=== PATIENT | male | born 1995 | race Caucasian/White ===

== ENCOUNTER 2017-07-11 05:36 | Emergency (ER) | payer OTHER ==
[2017-07-11 05:42] VITALS: BP 133/83; PULSE 67; RESP 18; TEMP 98.7
--- NOTE | 2017-07-11 06:12 | ED ---
ENT HPI - General Chief complaint: Dental/Oral Stated complaint: dental pain Time Seen by Provider: 07/11/17 05:54 Source: patient Mode of arrival: ambulatory Limitations: no limitations - History of Present Illness Initial comments: 21 years old male presents with the dental pain pain is on the right upper jaw is about first and second tooth also complaining about come swelling in the same area, he said pain is off-and-on for ongoing for about 4 weeks now, no fever no chills eating doessee pain worse no recent trauma to the jaw area. No headaches no stiff neck no chest pain or shortness of breath no abdominal pain no frequency urgency dysuria - Related Data Previous Rx's Medication Instructions Recorded Acetaminophen-Codeine 300-30mg 2 tab PO Q8H PRN #20 tablet 07/11/17 [Tylenol #3] Amoxicillin 500 mg PO Q8H #30 capsule 07/11/17 Allergies Allergy/AdvReac Type Severity Reaction Status Date / Time No Known Allergies Allergy Verified 07/11/17 05:43 Review of Systems ROS Statement: Those systems with pertinent positive or pertinent negative responses have been documented in the HPI. ROS Other: All systems not noted in ROS Statement are negative. Past Medical History Past Medical History: No Reported History History of Any Multi-Drug Resistant Organisms: None Reported Past Surgical History: Orthopedic Surgery Additional Past Surgical History / Comment(s): right knee Past Psychological History: Anxiety Smoking Status: Current every day smoker Past Alcohol Use History: Occasional Past Drug Use History: None Reported General Exam - General Exam Comments Initial Comments: General: The patient is awake and alert, in mild distress Skin: Skin is warm and dry and no rashes or lesions are noted. Eye: Pupils are equal, round and reactive to light, extra-ocular movements are intact; there is normal conjunctiva bilaterally. Ears, nose, mouth and throat: Upper jaw, more area tooth removal component to, no clear defect noticed a belted noticed some inflammation around the tooth or gum area him is also tender to deep palpation over the joint and over the right maxillary sinuses Neck: The neck is supple, there is no tenderness or JVD. Cardiovascular: There is a regular rate and rhythm. No murmur, rub or gallop is appreciated. Respiratory: To auscultation bilateral, no wheezing no rhonchi no distress respiratory culp noticed Gastrointestinal: Soft, non-distended, non-tender abdomen without masses or organomegaly noted. There is no rebound or guarding present. Bowel sounds are unremarkable. Back: There is no tenderness to palpation in the midline. There is no obvious deformity. Musculoskeletal: Normal ROM, no tenderness, There is no pedal edema. There is no calf tenderness or swelling. No cords were appreciated. Neurological: CN II-XII intact, Cranial nerves III through XII are intact. There are no obvious motor or sensory deficits. Coordination appears grossly intact. Speech is normal. Psychiatric: Cooperative, appropriate mood & affect, normal judgment. Limitations: no limitations Course Vital Signs 07/11/17 05:39 Temperature 98.7 F Pulse Rate 67 Respiratory 18 Rate Blood Pressure 133/83 O2 Sat by Pulse 98 Oximetry Disposition Clinical Impression: Pain, dental, Gum inflammation Disposition: HOME SELF-CARE Condition: Good Instructions: Toothache (ED) Additional Instructions: He is advised to follow-up with a dentist as soon as possible Prescriptions: Acetaminophen-Codeine 300-30mg [Tylenol #3] 2 tab PO Q8H PRN #20 tablet PRN Reason: Pain Amoxicillin 500 mg PO Q8H #30 capsule Referrals: None,Stated [Primary Care Provider] - 1-2 days
[2017-07-11] MEDS ORDERED: KETOROLAC 30 MG/ML 1 ML VIAL IM STA (06:18)
== END 2017-07-11 06:25 | disposition home or self-care (01) ==
LOC: EC 05:36
DX: K05.10 Chronic gingivitis, plaque induced (principal); K08.89 Other specified disorders of teeth and supporting structures; F17.200 Nicotine dependence, unspecified, uncomplicated
CPT/HCPCS: 99282; 96372; J1885

== ENCOUNTER 2019-07-31 14:28 | Emergency (ER) | payer OTHER ==
[2019-07-31 14:32] VITALS: BP 111/72; PULSE 64; RESP 20; TEMP 97.9
[2019-07-31] MEDS ORDERED: KETOROLAC 30 MG/ML 1 ML VIAL IM STA (14:48)
[2019-07-31] MEDS ORDERED: ORPHENADRINE 30 MG/ML 2 ML VIAL IM STA (14:49)
--- NOTE | 2019-07-31 15:02 | ED ---
General Adult HPI - General Chief complaint: Back Pain/Injury Stated complaint: Back pain Time Seen by Provider: 07/31/19 14:41 Source: patient, RN notes reviewed Mode of arrival: ambulatory Limitations: no limitations - History of Present Illness Initial comments: 23-year-old male without any significant past medical history presents to the emergency department for lower back pain times one week. 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 States that about a week ago he woke up after her shift and had lower back pain. States that he went to work today and this exacerbated his pain because he had to stand all day. Patient denies any radiating pain down the legs or any weakness numbness or tingling in the lower extremities. Denies any bladder or bowel changes. Denies any saddle anesthesia. No fevers, chills, or history of IV drug abuse. No history of back surgeries. No recent bacterial infections. Patient states that standing and bending his back seems to make the pain worse while laying down and resting makes the pain better. States the pain almost goes away while he is lying flat.Patient has no other complaints at this time including shortness of breath, chest pain, abdominal pain, nausea or vomiting, headache, or visual changes. - Related Data Previous Rx's Medication Instructions Recorded Cyclobenzaprine [Flexeril] 10 mg PO TID #12 tab 07/31/19 Ibuprofen [Motrin] 600 mg PO Q8HR PRN #20 tab 07/31/19 Allergies Allergy/AdvReac Type Severity Reaction Status Date / Time No Known Allergies Allergy Verified 07/31/19 14:32 Review of Systems ROS Statement: Those systems with pertinent positive or pertinent negative responses have been documented in the HPI. ROS Other: All systems not noted in ROS Statement are negative. Past Medical History Past Medical History: No Reported History History of Any Multi-Drug Resistant Organisms: None Reported Past Surgical History: Orthopedic Surgery Additional Past Surgical History / Comment(s): right knee Past Psychological History: Anxiety Smoking Status: Current every day smoker Past Alcohol Use History: Occasional Past Drug Use History: Marijuana General Exam Limitations: no limitations General appearance: alert, in no apparent distress Head exam: Present: atraumatic, normocephalic, normal inspection Eye exam: Present: normal appearance, PERRL, EOMI. Absent: scleral icterus, conjunctival injection, periorbital swelling ENT exam: Present: normal exam, mucous membranes moist Neck exam: Present: normal inspection, full ROM. Absent: tenderness, meningismus, lymphadenopathy Respiratory exam: Present: normal lung sounds bilaterally. Absent: respiratory distress, wheezes, rales, rhonchi, stridor Cardiovascular Exam: Present: regular rate, normal rhythm, normal heart sounds. Absent: systolic murmur, diastolic murmur, rubs, gallop, clicks GI/Abdominal exam: Present: soft, normal bowel sounds. Absent: distended, tenderness, guarding, rebound, rigid Extremities exam: Present: normal capillary refill (Capillary refill less than 2 seconds, DP and PT pulses 2+ and equal in lower extremities bilaterally), other (Sensation intact in lower extremities bilaterally) Back exam: Absent: full ROM (Patient has about 60 flexion of the lumbar spine), CVA tenderness (R), CVA tenderness (L), paraspinal tenderness, vertebral tenderness Neurological exam: Present: normal gait (Patient able to ambulate but does have increased pain when doing so), reflexes normal (Patellar reflexes 2+ in lower extremities). Absent: motor sensory deficit (Sensation intact in lower extremities bilaterally) Course Vital Signs 07/31/19 07/31/19 14:30 15:22 Temperature 97.9 F 97.9 F Pulse Rate 64 64 Respiratory 20 20 Rate Blood Pressure 111/72 111/72 O2 Sat by Pulse 100 100 Oximetry Medical Decision Making - Medical Decision Making 23-year-old male without any significant past medical history presents for lower back pain times one week. 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 States this is worse with standing and movement and better when lying flat. Denies any red flag symptoms. Exam is unremarkable. Neurologically intact in the lower extremities bilaterally. DP pulses 2+. Patient ambulatory although does have pain with significant flexion of the lumbar spine. Vitals are stable. There is no injury x-ray was not obtained but patient was referred to orthopedics for possible MRI if he does not have resolving symptoms. Patient was given pain medication and pain decreased from an 8 to a 3. Feeling much better and requesting discharge. He will follow up with orthopedics. He will return here if his any worsening symptoms which were discussed in depth with him. Disposition Clinical Impression: Mechanical back pain Disposition: HOME SELF-CARE Condition: Good Instructions (If sedation given, give patient instructions): Acute Low Back Pain (ED) Additional Instructions: Please follow up with orthopedics in one to 2 days. Take Motrin for pain. Take muscle relaxer as needed but do not take this while driving or operating machinery. Return to the emergency department if you have any worsening symptoms such as bladder or bowel changes, fevers, numbness of the groin or buttock, or weakness of the lower extremities. Prescriptions: Cyclobenzaprine [Flexeril] 10 mg PO TID #12 tab Ibuprofen [Motrin] 600 mg PO Q8HR PRN #20 tab PRN Reason: Pain Is patient prescribed a controlled substance at d/c from ED?: No Referrals: Phuong Bernard DO [Doctor of Osteopathic Medicine] - 1-2 days Vinny Aguilar MD [REFERRING] - 1-2 days Time of Disposition: 15:21
== END 2019-07-31 15:25 | disposition home or self-care (01) ==
LOC: EC 14:28
DX: M54.5 Low back pain (principal); F17.200 Nicotine dependence, unspecified, uncomplicated
CPT/HCPCS: 99283; 96372 ×2; J2360; J1885

== ENCOUNTER 2023-04-14 15:22 | Inpatient (IN) | payer MEDICAID ==
[2023-04-14] MEDS ORDERED: ACETAMINOPHEN TAB 325 MG TAB PO PRN (16:08)
[2023-04-14] MEDS ORDERED: MAGNESIUM HYDROXIDE 2,400 MG/10 ML CUP PO PRN (16:08)
[2023-04-14] MEDS ORDERED: LORazepam 1 MG TAB PO PRN (16:08)
[2023-04-14] MEDS ORDERED: haloperidoL 5 MG TAB PO PRN (16:08)
[2023-04-14] MEDS ORDERED: MAG HYDROX/AL HYDROX/SIMETH 30 ML CUP PO PRN (16:08)
[2023-04-14] MEDS ORDERED: LORazepam 2 MG/ML INJ IM PRN (16:11)
[2023-04-14] MEDS ORDERED: HALOPERIDOL LACTATE 5 MG/ML 1 ML VIAL IM PRN (16:12)
[2023-04-14] MEDS: OXcarbazepine 300 MG TAB PO SCH (21:24)
[2023-04-14 23:59] VITALS: RESP 16
[2023-04-15] MEDS: OXcarbazepine 300 MG TAB PO SCH ×2 (07:57→21:30)
[2023-04-15] MEDS: NICOTINE 14MG/24HR PATCH TRANSDERM SCH (07:57)
[2023-04-15 13:58] LABS: LDL Cholesterol,Calculated 106.3 mg/dL (0.0-131.0)
[2023-04-15 14:28] VITALS: BMI 30.3
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
[2023-04-15] MEDS: QUEtiapine 25 MG TAB PO SCH (21:30)
[2023-04-16] MEDS: OXcarbazepine 300 MG TAB PO SCH ×2 (07:52→21:23)
[2023-04-16] MEDS: NICOTINE 14MG/24HR PATCH TRANSDERM SCH (08:07)
--- NOTE | 2023-04-16 11:36 | P.PN ---
Progress Note - Text Progress Note Date: 04/16/23 Interval History: Patient was seen wandering the hallways and was directable and agreeable to speak with keno writer in the office. Currently, the patient is not reporting any suicidal or homicidal ideation, intention, and/or plan. Reports no auditory or visual hallucinations. He denies any paranoia or other delusions. He has been adherent with his medications and is not endorsing any significant side effects. The patient reports that he understands he needs to work on coping skills and was educated on not relying on others to be his sole coping skill. We engaged in mentalization and cognitive behavioral therapy. He reports no issues regarding his sleep is appetite. He expresses a desire for discharge and signed an AMA form that expires on 04/20/2023. Mental Status Exam: General Appearance: Patient appears to be stated age is alert, directable, and cooperative. Patient is balding. He has large spacers for earrings. Behavior: Patient is calmly seated without any agitated behavior. Speech: Patient's speech is fluent and nonpressured. Mood/Affect: Mood is improving mildly, affect is congruent and constricted. Suicidality/Homicidality: Patient denies having any suicidal or homicidal ideation intent or plan. Perceptions: Patient denies any visual hallucinations and denies any auditory hallucinations Though content/process: There is no evidence of any delusional thought content and thought process is linear and goal-directed. Memory and concentration: AOX3, grossly intact for the purposes of this session Judgment and insight: Improving mildly Vital Signs Temp 98.5 F 04/14/23 23:35 Pulse 97 04/14/23 23:35 Resp 16 04/14/23 23:35 BP 118/62 04/14/23 23:35 Pulse Ox FiO2 Intake & Output 04/15/23 04/16/23 04/16/23 18:59 06:59 18:59 Weight 96 kg Laboratory Results - Last 24 Hours 04/15/23 04/15/23 07:53 07:[address] Glu mg/dL 107 Hemoglobin A1c 5.3 Triglycerides 220.00 H Cholesterol 183.00 LDL Cholesterol, Calc 106.3 VLDL Cholesterol, Calc 44.00 H HDL Cholesterol 32.70 L Cholesterol/HDL Ratio 5.60 Assessment Bipolar disorder, unspecified Cannabis use disorder, mild Rule out borderline personality disorder Plan: -Patient continues to meet criteria for inpatient psychiatric admission for symptom stabilization and safety. Patient has signed adult voluntary form and medication consent and was placed in patient's chart. -Medications: Trileptal 300 mg by mouth twice a day for off label use for mood stabilization Seroquel 25 mg by mouth at bedtime for mood stabilization -When necessary Ativan and Haldol for agitation/aggression. -NRT - nicotine patch -SW on board for discharge planning. Encouraged the patient to participate in milieu.
--- NOTE | 2023-04-16 14:38 | P.HPMEDMHU ---
History of Present Illness H&P Date: 04/16/23 Patient is a 27-year-old male admitted to mental health unit. [facility] physicians has been consulted for medical management. Currently denies any medical problems. Smokes half pack a day, denies alcohol use, occasional marijuana use. Pertinent positives and negatives as discussed in HPI, a complete review of systems was performed and all other systems are negative. Patient seen and examined at bedside. Vital signs reviewed General: nontoxic, no distress, appears at stated age Derm: warm, dry Head: atraumatic, normocephalic, symmetric Eyes: EOMI, no lid lag, anicteric sclera, pupils equal round reactive to light ENT: Nose and ears atraumatic Neck: No thyromegaly, supple Mouth: no lip lesion, mucus membranes moist Cardiovascular: S1S2 reg, no murmur, no edema Lungs: clear to auscultation bilateral, no rhonchi, no rales, no wheeze, no accessory muscle use Abdominal: soft, nontender to palpation, no guarding, no appreciable organomegaly Ext: no gross muscle atrophy, muscle strength muscle strength 5 out of 5 in all 4 extremities, no contractures Neuro: CN II-XII grossly intact Psych: Alert, oriented, appropriate affect Assessment/Plan: Dyslipidemia Bipolar disorder Nicotine dependence Cannabis use disorder -Recommending lifestyle modification for dyslipidemia -Bipolar management per psychiatry -Nicotine patch 14 mg daily -Counseled regarding cessation of smoking Thank you for allowing us to participate in the care of this pleasant patient. Do not hesitate to contact us with questions. Someone can be reached from the [facility] hospitalist group all hours of the day at [phone] or via [employer]. Past Medical History Past Medical History: No Reported History History of Any Multi-Drug Resistant Organisms: None Reported Past Surgical History: Orthopedic Surgery Additional Past Surgical History / Comment(s): right knee Past Anesthesia/Blood Transfusion Reactions: No Reported Reaction Smoking Status: Current every day smoker Medications and Allergies Home Medications Medication Instructions Recorded Confirmed Type Cyclobenzaprine [Flexeril] 10 mg PO TID #12 tab 07/31/19 Rx Ibuprofen [Motrin] 600 mg PO Q8HR PRN #20 tab 07/31/19 Rx Allergies Allergy/AdvReac Type Severity Reaction Status Date / Time No Known Allergies Allergy Verified 07/31/19 14:32 Cranial Nerve Examination - Cranial Nerves Cranial Nerve II- Optic: Intact Cranial Nerve III- Oculomotor: Intact Cranial Nerve IV- Trochlear: Intact Cranial Nerve V- Trigeminal: Intact Cranial Nerve - Abducens: Intact Cranial Nerve VII- Facial: Intact Cranial Nerve VIII- Auditory: Intact Cranial Nerve IX- Glossopharyngeal: Intact Cranial Nerve X- Vagus: Intact Cranial Nerve XI- Accessory: Intact Cranial Nerve XII- Hypoglossal: Intact Thrombosis Risk Factor Assmnt - Choose All That Apply Each Factor Represents 1 point: Obesity (BMI >25) Other Risk Factors: No Other congenital or acquired thrombophilia - If yes, enter type in comment: No Thrombosis Risk Factor Assessment Total Risk Factor Score: 1 Thrombosis Risk Factor Assessment Level: Low Risk
[2023-04-16] MEDS: QUEtiapine 25 MG TAB PO SCH (21:23)
[2023-04-17 06:29] VITALS: BP 114/59; PULSE 91; TEMP 97.8
[2023-04-17] MEDS: OXcarbazepine 300 MG TAB PO SCH (08:15)
[2023-04-17] MEDS: NICOTINE 14MG/24HR PATCH TRANSDERM SCH (08:16)
--- NOTE | 2023-04-17 12:29 | P.DS ---
Providers Date of admission: 04/14/23 20:40 Expected date of discharge: 04/17/23 Attending physician: Ricky Zheng MD Consults: 04/14/23 16:08 Consult Physician Routine Consulting Provider: Brian Huynh Consult Reason/Comments: medical management Do you want consulting provider notified?: Yes Primary care physician: Carlos Evans MD - Discharge Diagnosis(es) (1) Bipolar disorder, unspecified Status: Acute Priority: High (2) Cannabis use disorder Status: Chronic Priority: Medium Hospital Course: Admission HPI: Initial psychiatric evaluation was provided by Dr. Mott who wrote: " Patient is a 27 year old , employed male who presented after self- harming. HPI: Patient presented to the hospital on 04/14/23 as a transfer from [facility]. Per EPS notes, "pt arrived at [facility] with a self inflicted superficial laceration on his right wrist. He has a hx of depression and suicidal thoughts that have been getting progressively worse. He used a razor to cut. Pt has been on a leave of absence from work r/t to his depression. He was in an arguement aftera manic episode. he thinks he has hurt his and would be beter off . He said the cut would have been deeper however the razor was dull. His father has a hx of attempts in the past. He indicates that he rapid cycles with his moods. Pt cannot state he will be safe if he goes home. His future depends on whether or not his stays with him." He reports he had a "manic" episode last year from July 2022- November 2022. He reports he changed jobs in June 2022, which he feels made him cocky, he and his were becoming distant at home, he left the house (was crashing on people's couches he met from work, would watch TV, play on his phone, play video games or go for drives, reports he would sleep about 4 hours), started sleeping with someone else from work. He reports he came out of the "manic" state in November 2022, and left his job, and went back home. His took him to [facility] for treatment. He reports prior to admission, he and his were arguing about incidents last fall/winter, and he was feeling down, so he left the house and came back, got a razor from the bathroom and cut his left wrist (superficial cut, no stitches needed, cut is healing without redness or drainage). He reports today he feels "great", feels like he just needed a wake up call. He denies depressed mood. Patient denies any suicidal or homicidal ideation, intent or plan. At this time patient denies any auditory or visual hallucinations. Patient denies any flight of ideas racing thoughts and increased in goal directed behavior. Patient admits to using smoking marijuana daily but has cut down and stopped 3 weeks ago. He denies recent alcohol use. He smokes 10 cigs per day. PAST PSYCHIATRIC HISTORY: Patient states that he is diagnosed with Bipolar disorder Patient reports psychiatric medications: currently on Trileptal 300 mg BID, previously he was on Depakote. Patient denies any previous psychiatric hospitalizations. Psychiatric outpatient follow-up: [facility], sees "Melody" Patient denies any history of suicide attempts in the past: Denies" Hospital course: Upon admission to the unit patient was initially presenting as depressed and suicidal. Patient was however directable and agreeable to commence treatment. Patient got along well with other patients on the unit and followed unit protocol. Patient was compliant with the medications and denied any side effects throughout hospital course. Patient was started on his home medication Trileptal with Seroquel added to address mood stability and sleep. Patient spoke of his stressors and engaged in therapy both group and individual. Patient was also seen by medical team for history and physical exam. Throughout the course of the hospitalization patient gradually improved with regards to his depression, sleep, and anxiety. He became future oriented with improved insight and judgment. On the day of discharge patient denied any suicidal or homicidal ideations intent or plan denied any auditory or visual hallucinations. Patient endorsed wanting to live for his health and family. The patient denied any access to guns or weapons. Patient denied any paranoia and did not endorse any delusions. 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 Patient was also counseled on the medications and need for regular compliance and was encouraged to follow-up with their outpatient appointment for mental health and also for primary care. Prior to discharge a family meeting will be arranged by social security assessor to answer any questions and ensure safety upon discharge. Mental status exam: General Appearance: Patient appears to be stated age is alert, pleasant, and cooperative. Patient is in no acute distress and has fair hygiene and grooming Behavior: Patient is calmly seated without any agitated behavior. Speech: Patient's speech is fluent and nonpressured. Mood/Affect: Patient reports their mood is "much better", affect is congruent and euthymic to bright. Suicidality/Homicidality: Patient denies having any suicidal or homicidal ideation intent or plan. Perceptions: Patient denies any auditory or visual hallucinations. Though content/process: There is no evidence of any delusional thought content and thought process is linear and goal-directed. Patient is future and goal oriented. Memory and concentration: AOX3, grossly intact for the purposes of this session. Can spell "WORLD" backwards correctly. Judgment and insight: Improved Impression: Bipolar disorder, unspecified Cannabis use disorder Plan: -Continue with discharge today as patient has improved and stabilized psychiatrically and is not currently an imminent threat to himself and/or others. Patient has numerous protective factors including duty to his family, social supports, and no prior attempts at suicide. -Continue medications: Trileptal 300 mg by mouth twice a day for off label use for mood stability Seroquel 25 mg by mouth at bedtime for mood augmentation -Patient was counseled on the need for medication compliance and appropriate follow-up at mental health and also primary care for medical issues. Patient verbalized understanding and agreed. -Social work to arrange for and conduct family meeting to ensure safety upon discharge and answer any questions/concerns. Social work also to arrange for patients follow up appointments with [facility] for psychiatric care along with follow up with primary care provider. -Patient counseled on abstaining from recreational drugs and marijuana and alcohol. Was informed/educated on the adverse effects on their physical and mental health. Patient verbally agreed and understood. -Patient was instructed to return to the hospital or seek immediate medical care if their psychiatric or medical symptoms do worsen or reoccur. -Psychoeducation and supportive therapy provided to patient. Risks and benefits of pharmacological treatment versus the risks and benefits of nontreatment weighed and discussed. Informed consent discussion held. Common side effects of psychotropics discussed such as, but not limited to headache, GI disturbance, sexual dysfunction, movement disorders, sedation, and orthostatic hypotension. Life threatening and blackbox warnings of prescribed medications also discussed. Potential risks of operating a vehicle or heavy machinery discussed with patient at length. Advised on importance of compliance and a reliable and responsible manner. Patient advised to review FDA consumer labeling of all medications prior to taking. Patient verbalized understanding of potential risks, and agrees with current treatment plan. Patient advised to medically contact physician/emergency personnel if any acute changes in condition occur. Vital Signs Temp 97.8 F 04/17/23 06:29 Pulse 91 04/17/23 06:29 Resp 16 04/17/23 06:29 BP 114/59 04/17/23 06:29 Pulse Ox 97 04/17/23 06:29 FiO2 Laboratory Results Estimated Ave Glu mg/dL 107 04/15/23 07:53 Hemoglobin A1c 5.3 % (0.0-6.0) 04/15/23 07:53 Triglycerides 220.00 mg/dL (0.00-149.00) H 04/15/23 07:53 Cholesterol 183.00 mg/dL (0.00-200.00) 04/15/23 07:53 LDL Cholesterol, Calc 106.3 mg/dL (0.0-131.0) 04/15/23 07:53 VLDL Cholesterol, Calc 44.00 mg/dL (5.00-40.00) H 04/15/23 07:53 HDL Cholesterol 32.70 mg/dL (40.00-60.00) L 04/15/23 07:53 Cholesterol/HDL Ratio 5.60 Ratio 04/15/23 07:53 TSH 1.450 mIU/L (0.465-4.680) 04/15/23 07:53 Allergies Allergy/AdvReac Type Severity Reaction Status Date / Time No Known Allergies Allergy Verified 07/31/19 14:32 Patient Condition at Discharge: Stable Plan - Discharge Summary New Discharge Prescriptions: New QUEtiapine [SEROquel] 25 mg PO HS 30 Days #30 tab OXcarbazepine [Trileptal] 300 mg PO BID 30 Days #60 tab Continue Cyclobenzaprine [Flexeril] 10 mg PO TID #12 tab Discontinued Ibuprofen [Motrin] 600 mg PO Q8HR PRN #20 tab PRN Reason: Pain Discharge Medication List Cyclobenzaprine [Flexeril] 10 mg PO TID #12 tab 07/31/19 [Rx] OXcarbazepine [Trileptal] 300 mg PO BID 30 Days #60 tab 04/17/23 [Rx] QUEtiapine [SEROquel] 25 mg PO HS 30 Days #30 tab 04/17/23 [Rx] Follow up Appointment(s)/Referral(s): [facility] [Outside] - 04/20/23 11:00 am (04/20/2023 11:00AM - 12:00PM JOSE MARTIN WALLACE II 04/24/2023 12:30PM - 1:00PM MELODY REDDING ) Carlos Evans MD [Primary Care Provider] - 1 Week Patient Instructions/Handouts: Bipolar Disorder (DC) Activity/Diet/Wound Care/Special Instructions: Avoid the use of street drugs and alcohol. Take all medications as prescribed. When you are in need of refills on your medications, please contact your medical provider and/or outpatient psychiatrist to have this done. Please go to [facility] outpatient appointments for aftercare treatment. If symptoms return or become worse, call the crisis line at and/or go to the nearest emergency room for evaluation. Discharge Disposition: HOME SELF-CARE
== END 2023-04-17 11:48 | disposition home or self-care (01) | DRG 753 ==
LOC: 3MHU 20:40
PROVIDERS: ADMIT Psychiatry & Neurology Psychiatry; ATTEND Psychiatry & Neurology Psychiatry
DX: F31.9 Bipolar disorder, unspecified (principal); S61.511A Laceration without foreign body of right wrist, initial encounter; E78.5 Hyperlipidemia, unspecified; F17.210 Nicotine dependence, cigarettes, uncomplicated; F41.9 Anxiety disorder, unspecified; Z53.29 Procedure and treatment not carried out because of patient's decision for other reasons; X78.9XXA Intentional self-harm by unspecified sharp object, initial encounter; Z79.899 Other long term (current) drug therapy
CPT/HCPCS: 80061; 80183; 83036; 84443